=== PATIENT | female | born 1950 | race Caucasian/White ===

== ENCOUNTER → 2024-05-20 | Day surgery (SDC) | payer MEDICARE, OTHER ==
[~2024-05-20] VITALS: Ht 160 cm; Wt 82.6 kg
[~2024-05-20] MED LIST: ACETAMINOPHEN 1000MG 100ML IV BAG As Ordered ONE; ALBU8.5H INH; HYDR-3490 PO; KETOROLAC 60MG 2ML VIAL As Ordered ONE; LIDOCAINE 2% 100MG/5ML SDV (FOR ANES.) As Ordered ONE; MIDAZOLAM INJ 2MG/2ML VIAL As Ordered ONE; ONDANSETRON 4MG 2ML VIAL As Ordered ONE; POTA-151 PO; THERTAB52 PO; VITA1CAP25 PO; fentaNYL 100 MCG/2 ML INJECTION As Ordered ONE; propofoL 200 MG/20 ML VIAL As Ordered ONE
[2024-05-20] MEDS: GENTAMICIN SULF 80MG/2ML VIAL As Ordered ONE (10:42)
[2024-05-20] MEDS: ceFAZolin SOD 2 GM in IV 1 EA IV ONE (10:52)
[2024-05-20] MEDS: LIDOCAINE 2% MDV 20ML VIAL As Ordered ONE (10:56)
[2024-05-20 13:40] VITALS: BP 127/83; TEMP 97.2; O2SAT 96
== END | disposition home or self-care (01) ==
LOC: M SDC 08:45
PROVIDERS: ATTEND Podiatrist
DX: M21.611 Bunion of right foot (principal); M20.41 Other hammer toe(s) (acquired), right foot; J30.2 Other seasonal allergic rhinitis; Z79.899 Other long term (current) drug therapy
CPT/HCPCS: 28110; 28285; 73630; 76000; 88300; C1713; J0131; J0665; J0690; J1100; J1580; J1885; J2250; J2405; J3010

== ENCOUNTER 2024-11-18 08:32 | Day surgery (SDC) | payer MEDICARE ==
[~2024-11-18] VITALS: Ht 160 cm; Wt 81.1 kg
[~2024-11-18 08:32] MED LIST changes: -ACETAMINOPHEN 1000MG 100ML IV BAG As Ordered ONE; -KETOROLAC 60MG 2ML VIAL As Ordered ONE; -LIDOCAINE 2% 100MG/5ML SDV (FOR ANES.) As Ordered ONE; -MIDAZOLAM INJ 2MG/2ML VIAL As Ordered ONE; -ONDANSETRON 4MG 2ML VIAL As Ordered ONE; +VITA200020 PO; -fentaNYL 100 MCG/2 ML INJECTION As Ordered ONE; -propofoL 200 MG/20 ML VIAL As Ordered ONE
[2024-11-18] MEDS ORDERED: NS (Normal Saline) 0.9% 1,000 ML IV SCH (09:20)
[2024-11-18] MEDS: GENTAMICIN SULF 80MG/2ML VIAL As Ordered ONE (11:27)
[2024-11-18] MEDS: LIDOCAINE 2% MDV 20ML VIAL As Ordered ONE (11:28)
[2024-11-18] MEDS: NEOSPORIN TOP OINT 15GM As Ordered ONE (11:28)
[2024-11-18] MEDS: ROPIvacaine 0.5% 30ML VIAL As Ordered ONE (11:28)
[2024-11-18] MEDS ORDERED: propofoL 200 MG/20 ML VIAL As Ordered ONE (11:31)
[2024-11-18] MEDS ORDERED: LIDOCAINE 2% 100MG/5ML SDV (FOR ANES.) As Ordered ONE (11:31)
[2024-11-18] MEDS ORDERED: fentaNYL 100 MCG/2 ML INJECTION As Ordered ONE (12:05)
[2024-11-18] MEDS: ceFAZolin SOD 2 GM in IV 1 EA IV ONE (12:20)
[2024-11-18] MEDS ORDERED: KETOROLAC 60MG 2ML VIAL As Ordered ONE (13:08)
[2024-11-18 14:50] VITALS: BP 147/69; TEMP 96.9; O2SAT 98
== END 2024-11-18 15:03 | disposition home or self-care (01) ==
LOC: M SDC 08:32
PROVIDERS: ATTEND Podiatrist
DX: M21.622 Bunionette of left foot (principal); M20.42 Other hammer toe(s) (acquired), left foot; I10 Essential (primary) hypertension; J45.909 Unspecified asthma, uncomplicated; J30.2 Other seasonal allergic rhinitis; Z88.8 Allergy status to other drugs, medicaments and biological substances; Z79.51 Long term (current) use of inhaled steroids; Z79.899 Other long term (current) drug therapy
CPT/HCPCS: 28285; 28308; 73630; 76000; 88300; C1713; C1769; J0665; J0690; J1580; J1885; J3010